=== PATIENT | female | born 1970 | race Caucasian/White ===

== ENCOUNTER 2020-07-28 13:20 | Emergency (ER) | payer OTHER ==
[~2020-07-28] VITALS: Ht 160 cm; Wt 73.5 kg
--- NOTE | 2020-07-28 13:29 | Emergency Department Note ---
History of Present Illnes History of Present Illness Chief Complaint: General Medicine Complaints History of Present Illness This is a 49 year old female with paralysis of left half of face since yesterday . Historian: Patient Arrival Mode: Car Onset (how long ago): day(s) (1) Location: left face Radiation: Reports non-radiation Severity: mild Onset quality: gradual Duration (how long): day(s) (1) Timing of current episode: constant Progression: unchanged Chronicity: new Context: Denies recent illness, Denies recent surgery, Denies recent immobilization, Denies recent travel, Denies trauma/injury, Denies new medications, Denies hx of DVT/PE, Denies non-compliance w/ medications, Denies other Relieving factors: none Exacerbating factors: none Associated symptoms: Reports weakness Treatments prior to arrival: none Past Medical/Family History Physician Review I have reviewed the patient's past medical and family history. Any updates have been documented here. Past Medical History Recent Fever: No Clinical Suspicion of Infectio: No New/Unexplained Change in Ment: No Social History Smoking Cessation: Never Smoker Alcohol Use: None Any Illegal Drug Use: No Review of Systems Review of Systems Constitutional: Reports no symptoms EENTM: Reports no symptoms Cardiovascular: Reports no symptoms Respiratory: Reports no symptoms Gastrointestinal: Reports no symptoms Genitourinary: Reports no symptoms Musculoskeletal: Reports no symptoms Integumentary: Reports no symptoms Neurological: Reports weakness Psychological: Reports no symptoms Endocrine: Reports no symptoms Hematological/Lymphatic: Reports no symptoms Physical Exam Related Data Allergies: Coded Allergies: Penicillins (Verified Allergy, Severe, ANAPHYLAXIS, 07/28/20) Triage Vital Signs Vital Signs Date Time Temp Pulse Resp B/P (MAP) Pulse Ox O2 Delivery O2 Flow Rate FiO2 07/28/20 13:23 96.1 84 20 164/94 98 Room Air Vital signs reviewed: Yes Physical Exam CONSTITUTIONAL HENT EYES NECK PULMONARY CARDIOVASCULAR GASTROINTESTINAL GENITOURINARY SKIN MUSCULOSKELETAL NEUROLOGICAL Neurological: Present alert, Present oriented x 3, Present weakness (left facial weakness, CN VII deficit L. no sparing of the forehead) PSYCHOLOGICAL Results Imaging Imaging results reviewed: Yes Impressions [place] [id number] Patient Name: KERRI EDWARDS MR #: [id number] : 1970 Age/Sex: 49/F Req #: [id number] Adm Physician: Ordered by: ANDREEA SHIN DO Report #: [id number] Location: ER Room/Bed: Procedure: [id number] CT/CT BRAIN WO Exam Date: 07/28/20 Exam Time: 1330 REPORT STATUS: Signed CT BRAIN WO HISTORY: Left facial droop COMPARISON: None. TECHNIQUE: Noncontrast axial scans were obtained from skull base to the vertex. Coronal and sagittal reconstructions obtained from the axial data. One or more of the following dose reduction techniques were used: Automated exposure control, adjustment of the mA and/or kV according to patient size, and/or utilization of iterative reconstruction technique. DISCUSSION: Scalp/Skull: Unremarkable. Brain sulci: Appropriate for patient's age. Ventricles: Normal in size and configuration. No hydrocephalus. Extra-axial spaces: No masses or fluid collections. Mild carotid siphon calcifications are present. Parenchyma: No abnormal densities. No mass, hemorrhage, or large vascular territory acute infarct. Dural sinuses: No abnormal densities. Sellar/Suprasellar region: Intact. Skull base: Intact. Incidental findings: None. IMPRESSION: 1. Mild carotid siphon calcifications. 2. No other intracranial abnormalities. Signed by: Dr. Ralph James M.D. on 07/28/2020 2:03 PM Dictated By: RALPH JAMES MD 02 Transcribed By: MICHAEL on 07/28/201402 COPY TO: ANDREEA SHIN DO~ Assessment & Plan Medical Decision Making MDM Diff Dx : Garcia's palsy, CNVII dysfunction, CVA Assessment & Plan Final Impression: (1) Garcia palsy Depart Disposition: HOME, SELF-CARE ANDREEA SHIN DO Jul 28, 2020 13:28
--- NOTE | 2020-07-28 14:06 | Diagnostic Imaging Report ---
CT BRAIN WO HISTORY: Left facial droop COMPARISON: None. TECHNIQUE: Noncontrast axial scans were obtained from skull base to the vertex. Coronal and sagittal reconstructions obtained from the axial data. One or more of the following dose reduction techniques were used: Automated exposure control, adjustment of the mA and/or kV according to patient size, and/or utilization of iterative reconstruction technique. DISCUSSION: Scalp/Skull: Unremarkable. Brain sulci: Appropriate for patient's age. Ventricles: Normal in size and configuration. No hydrocephalus. Extra-axial spaces: No masses or fluid collections. Mild carotid siphon calcifications are present. Parenchyma: No abnormal densities. No mass, hemorrhage, or large vascular territory acute infarct. Dural sinuses: No abnormal densities. Sellar/Suprasellar region: Intact. Skull base: Intact. Incidental findings: None. IMPRESSION: 1. Mild carotid siphon calcifications. 2. No other intracranial abnormalities. Signed by: Dr. Ralph James M.D. on 07/28/2020 2:03 PM
[2020-07-28 14:27] VITALS: BP 142/90
== END 2020-07-28 14:30 | disposition home or self-care (01) ==
LOC: ER 14:14
DX: G51.0 Bell's palsy (principal); R53.1 Weakness
CPT/HCPCS: 70450; 99284